=== PATIENT | female | born 1970 | race Caucasian/White ===

== ENCOUNTER 2023-01-25 16:30 | Outpatient (RCR) | payer OTHER, BC, SELFPAY | END 2023-05-25 23:59 | disposition home or self-care (01) | PROVIDERS: Visit Provider Family Medicine | DX: Z02.6 Encounter for examination for insurance purposes (principal); S82.025D Nondisplaced longitudinal fracture of left patella, subsequent encounter for closed fracture with routine healing; M79.671 Pain in right foot; Z51.89 Encounter for other specified aftercare | CPT/HCPCS: 97110; 97161 ==

== ENCOUNTER 2023-07-18 08:25 | Outpatient (CLI) | payer BC, SELFPAY | END 2023-07-18 08:26 | disposition home or self-care (01) | LOC: NFLDREF 07-20 22:12 | PROVIDERS: Visit Provider Nurse Practitioner Family | DX: R35.0 Frequency of micturition (principal); N30.00 Acute cystitis without hematuria; N30.01 Acute cystitis with hematuria | CPT/HCPCS: 87086; 87186 ==

== ENCOUNTER 2023-11-26 08:43 | Day surgery (SDC) | payer BC, SELFPAY ==
[2023-11-26 09:02] VITALS: BMI 27.9
[2023-11-26 09:24] VITALS: BP 121/65; PULSE 68; RESP 16; TEMP 37.2; O2SAT 98
[2023-11-26] MEDS: LACTATED RINGERS 1000 ML 1,000 ML 100 ML IV (09:26)
[2023-11-26] MEDS: SODIUM CHLORIDE 0.9 % (FLUSH) 10 ML SYRINGE IVF (09:27)
--- NOTE | 2023-11-26 11:59 | W.ANESCHARGE ---
Anesthesia Charges Start Date/Time Anesthesia Start Date: 11/26/23 Anesthesia Start Time: 11:29 Stop Date/Time Anesthesia Stop Date: 11/26/23 Anesthesia Stop Time: 12:16
--- NOTE | 2023-11-26 12:10 | W.PM.GYNPROC ---
Procedure Note Date of procedure: 11/26/23 Pre-op diagnosis: Postmenopausal bleeding, endometrial polyp on endometrial biopsy Post-op diagnosis: same Procedure: Hysteroscopy, D&C, polypectomy Anesthesia: MAC and local ( paracervical block) Complications: None. Surgeon: Valarie Harrison MD Estimated blood loss (mL): 5 Pathology: specimen obtained, sent to pathology ( endometrial current anxious, ? polypoid) Condition: stable Disposition: same day Findings: Retroverted uterus, sound length 6 cm; thick, polypoid endometrial tissue along the anterior endometrial cavity wall. Normal left tubal ostia. Right tubal ostia difficult to visualize. Procedure Description: After obtaining informed consent, the patient was taken to the operating room where she received monitored anesthesia care. She was prepared and draped in the normal sterile fashion, in the dorsal lithotomy position. An open-sided bivalve speculum was introduced into the vagina and the cervix visualized. The anterior lip of the cervix was grasped with a single-tooth tenaculum for traction. A paracervical block was then administered using a total of 20 mL of a 50/50 mixture of 0.25% Marcaine and 1% lidocaine plain. The uterus was gently sounded. Sound length was 6 cm. The cervix was gently dilated to a #6 Hegar dilator. A hysteroscope was then advanced under direct visualization through the cervix into the uterine cavity. Sterile normal saline was used as distending medium. The uterine cavity was carefully inspected with the findings noted above. Pictures were taken for documentation purposes. The TruClear morcellator was inserted through the operating channel in the hysteroscope. The morcellator was used to remove the polypoid tissue in its entirety. The hysteroscope was then removed. The endometrial lining was then sharply curetted. A gritty feel was felt throughout. The tenaculum was removed. All instruments were then removed. The patient tolerated the procedure well. Sponge, lap, needle, and instrument counts reported as correct x2. The patient was taken to the recovery room awake in a stable condition.
[2023-11-26 12:15] VITALS: BP 115/78; PULSE 65; RESP 16; TEMP 36.2; O2SAT 98
[2023-11-26 12:30] VITALS: BP 122/67; PULSE 62; RESP 16; O2SAT 96
--- NOTE | 2023-11-26 12:34 | W.ANESCHARGE ---
Anesthesia Charges Start Date/Time Anesthesia Start Date: 11/26/23 Anesthesia Start Time: 11:29 Stop Date/Time Anesthesia Stop Date: 11/26/23 Anesthesia Stop Time: 12:16
[2023-11-26 12:45] VITALS: BP 119/63; PULSE 65; RESP 16; O2SAT 98
[2023-11-26 13:00] VITALS: BP 110/67; PULSE 51; RESP 16; O2SAT 97
== END 2023-11-26 13:28 | disposition home or self-care (01) ==
PROVIDERS: PCP Family Medicine; Visit Provider Obstetrics & Gynecology
PROC: 0UDB8ZZ Extraction of Endometrium, Via Natural or Artificial Opening Endoscopic (ICD-10-PCS; CPT 58558; principal; 2023-11-26 10:00)
DX: N95.0 Postmenopausal bleeding (principal); N84.0 Polyp of corpus uteri
CPT/HCPCS: 58558; 00952; 81025; 88305; J1100; J1885; J2250; J2405; J2704; J3010; J7120

== ENCOUNTER 2024-10-05 12:18 | Outpatient (CLI) | payer BC, SELFPAY | END 2024-10-05 12:19 | disposition home or self-care (01) | LOC: NFLDREF 10-12 04:29 | PROVIDERS: PCP Family Medicine; Referring Provider Family Medicine; Visit Provider Nurse Practitioner | DX: N30.00 Acute cystitis without hematuria (principal); B96.20 Unspecified Escherichia coli [E. coli] as the cause of diseases classified elsewhere | CPT/HCPCS: 87086; 87186 ==